=== PATIENT | male | born 1985 | race Caucasian/White ===

== ENCOUNTER 2020-06-30 07:36 | Emergency (ER) | payer OTHER ==
[2020-06-30 07:41] VITALS: BP 109/80
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
== END 2020-06-30 09:06 | disposition home or self-care (01) ==
LOC: ED 07:36
DX: S20.219A Contusion of unspecified front wall of thorax, initial encounter (principal); T14.8XXA Other injury of unspecified body region, initial encounter; Z79.899 Other long term (current) drug therapy; V49.49XA Driver injured in collision with other motor vehicles in traffic accident, initial encounter; Y92.410 Unspecified street and highway as the place of occurrence of the external cause; Y93.89 Activity, other specified; Y99.8 Other external cause status
CPT/HCPCS: 71046